=== PATIENT | male | born 1965 | race Hispanic/Latino ===

== ENCOUNTER 2023-04-14 14:21 | Emergency (ER) | payer OTHER, MEDICARE ==
[2023-04-14 14:22] VITALS: BP 99/44; PULSE 77; RESP 16
== END 2023-04-14 14:30 | disposition left against medical advice (07) ==
LOC: EDH 14:21
DX: R42 Dizziness and giddiness (principal); Z53.21 Procedure and treatment not carried out due to patient leaving prior to being seen by health care provider
CPT/HCPCS: 99281